=== PATIENT | female | born 1935 | race Caucasian/White ===

== ENCOUNTER 2017-10-13 21:46 | Inpatient (IN) | payer MEDICARE ==
[~2017-10-13] VITALS: Ht 152.4 cm; Wt 54.6 kg
[~2017-10-13 21:46] MED LIST: ANTIVERT12.5 MG PO; ATROVENT H0.017 MG/1 IH; BIA500 PO; CALCITONIN NS; CALCIUM500 MG PO; CRANBERRY CONC500 MG PO; FLA500 PO; GERITOL PO; LAC PO; LEVAQUIN750 MG PO; MAC100 PO; MUCINEX600 MG PO; NEPHRO-VITE VITA1 EA PO; RANITIDINE15 MG/M1 PO; ZOF4 PO; [UNRECOGNIZED DRUG - OTHER] NS
[2017-10-13 23:00] LABS: BASOPHIL % 0.5 % (0-2); PLATELET COUNT 157 x10^3mcL (130-400); RED CELL DISTRIBUTION WIDTH 12.9 % (11.5-14.5)
[2017-10-13 23:09] LABS: CALCIUM 8.5 mg/dL (8.5-10.1); CARBON DIOXIDE 30.7 mmol/L (21-32); CHLORIDE SERUM 104 mmol/L (98-107); CREATININE SERUM 0.6 mg/dL (0.6-1.0); GLUCOSE SERUM 88 mg/dL (74-106); POTASSIUM SERUM 3.7 mmol/L (3.5-5.1); SODIUM SERUM 139 mmol/L (136-145)
[2017-10-13 23:14] LABS: ALKALINE PHOSPHATASE 102 U/L (46-116); ALT/SGPT 24 U/L (14-59); AST/SGOT 26 U/L (15-37); BILIRUBIN TOTAL 0.4 mg/dL (0.20-1.00); HDL CHOLESTEROL 56 mg/dL (40-60); PHOSPHOROUS 3.1 mg/dL (2.5-4.9); TOTAL PROTEIN, SERUM 6.2 g/dL (6.4-8.2); URIC ACID 2.8 mg/dL (2.6-6.0)
[2017-10-13 23:15] LABS: ALBUMIN 3.1 g/dL (3.4-5.0); CHOLESTEROL 132 mg/dL (<200)
[2017-10-14] VITALS (9 sets, daily range): BP systolic 97–140; BP diastolic 42–66
[2017-10-14 00:03] LABS: MAGNESIUM 1.8 mg/dL (1.8-2.4)
[2017-10-14 00:06] LABS: CHOLESTEROL/HDL RATIO 2.4
[2017-10-14 00:10] LABS: T3 TOTAL 0.99 ng/mL
[2017-10-14 00:12] LABS: FREE T4 1.14 ng/dL (0.76-1.46); FREE THYROXINE INDEX 3.2 ug/dL (1.4-4.5)
[2017-10-14 00:13] LABS: microscopic required? NO
[2017-10-14 00:20] LABS: urine erythrocyte NEGATIVE (NEGATIVE)
[2017-10-14 07:25] LABS: BASOPHIL % 0.2 % (0-2); PLATELET COUNT 143 x10^3mcL (130-400); RED CELL DISTRIBUTION WIDTH 12.7 % (11.5-14.5)
[2017-10-14 07:32] LABS: CALCIUM 8.1 mg/dL (8.5-10.1); CARBON DIOXIDE 30.9 mmol/L (21-32); CHLORIDE SERUM 106 mmol/L (98-107); CREATININE SERUM 0.6 mg/dL (0.6-1.0); GLUCOSE SERUM 81 mg/dL (74-106); MAGNESIUM 1.8 mg/dL (1.8-2.4); PHOSPHOROUS 3.1 mg/dL (2.5-4.9); POTASSIUM SERUM 3.5 mmol/L (3.5-5.1); SODIUM SERUM 141 mmol/L (136-145)
[2017-10-15 05:33] LABS: RED CELL DISTRIBUTION WIDTH 12.9 % (11.5-14.5)
[2017-10-15 05:48] LABS: BASOPHIL % 0 % (0-2); PLATELET COUNT 129 x10^3mcL (130-400)
[2017-10-15 06:16] LABS: CALCIUM 8.4 mg/dL (8.5-10.1); CARBON DIOXIDE 25.7 mmol/L (21-32); CHLORIDE SERUM 103 mmol/L (98-107); CREATININE SERUM 0.8 mg/dL (0.6-1.0); GLUCOSE SERUM 131 mg/dL (74-106); MAGNESIUM 1.6 mg/dL (1.8-2.4); PHOSPHOROUS 3.6 mg/dL (2.5-4.9); SODIUM SERUM 138 mmol/L (136-145)
[2017-10-15 08:42] VITALS: BP 93/56
[2017-10-15 12:31] VITALS: BP 130/83
[2017-10-15 16:33] VITALS: BP 98/49
[2017-10-15 19:48] VITALS: BP 96/52
[2017-10-15 21:54] VITALS: BP 90/44
[2017-10-15 22:15] VITALS: BP 98/53
[2017-10-16 05:14] VITALS: BP 96/56
[2017-10-16 06:20] LABS: BASOPHIL % 0.1 % (0-2)
[2017-10-16 06:34] LABS: PLATELET COUNT 104 x10^3mcL (130-400)
[2017-10-16 06:38] LABS: CALCIUM 8.3 mg/dL (8.5-10.1); CARBON DIOXIDE 27.8 mmol/L (21-32); CHLORIDE SERUM 105 mmol/L (98-107); CREATININE SERUM 0.5 mg/dL (0.6-1.0); GLUCOSE SERUM 93 mg/dL (74-106); MAGNESIUM 1.6 mg/dL (1.8-2.4); PHOSPHOROUS 2.4 mg/dL (2.5-4.9); POTASSIUM SERUM 3.4 mmol/L (3.5-5.1); SODIUM SERUM 137 mmol/L (136-145)
[2017-10-16 10:41] VITALS: BP 97/53
[2017-10-16] MEDS ORDERED: LEVOFLOXACIN I100 ML IV (12:24)
[2017-10-16] MEDS ORDERED: CLEOCIN HCL300 MG PO (12:27)
[2017-10-16] MEDS ORDERED: COL100 PO (12:28)
[2017-10-16] MEDS ORDERED: MYCC TOP (12:28)
[2017-10-16] MEDS ORDERED: PULMICORT0.5 MG/2 M IH (12:28)
[2017-10-16] MEDS ORDERED: IPRATROPIUM BROM3 M2 HHN (12:29)
[2017-10-16] MEDS ORDERED: ULT50 PO (12:30)
[2017-10-16 13:48] VITALS: BP 97/53
[2017-10-16 14:17] VITALS: BP 119/61
[2017-10-16] MEDS ORDERED: FLA500 PO (14:31)
[2017-10-16] MEDS ORDERED: NYSTATIN100000 U/M PO (14:35)
== END 2017-10-16 16:19 | DRG 542 ==
LOC: ED 21:46 → DU 23:07
PROVIDERS: Emergency Medicine; Family Medicine; ADMIT Family Medicine
DX: M80.852A Other osteoporosis with current pathological fracture, left femur, initial encounter for fracture (principal); J69.0 Pneumonitis due to inhalation of food and vomit; J96.01 Acute respiratory failure with hypoxia; E44.0 Moderate protein-calorie malnutrition; L30.4 Erythema intertrigo; D53.9 Nutritional anemia, unspecified; R55 Syncope and collapse; J44.9 Chronic obstructive pulmonary disease, unspecified; I73.9 Peripheral vascular disease, unspecified; Z96.642 Presence of left artificial hip joint; Z96.652 Presence of left artificial knee joint; Z68.23 Body mass index [BMI] 23.0-23.9, adult; Z77.22 Contact with and (suspected) exposure to environmental tobacco smoke (acute) (chronic)
CPT/HCPCS: 82962; 83880; 84439; 92610-GN; 94150; 97110-GP; 97530-GP; J1956; J2060; J2405; J3490; J7030; J7620; J7626; J7644; Q0092